=== PATIENT | male | born 1955 | race Caucasian/White ===

== ENCOUNTER 2016-11-26 15:44 | Emergency (ER) | payer BC ==
[~2016-11-26] VITALS: Ht 172.7 cm; Wt 104.0 kg
[2016-11-26 15:45] VITALS: Ht 172.7 cm; Wt 104.0 kg
[2016-11-26] MEDS ORDERED: SODIUM CHLORIDE 0.9% 1000ML 1,000 ML IV ONE (16:15)
[2016-11-26 16:24] VITALS: O2SAT 94
[2016-11-26] MEDS ORDERED: CANA1TAB PO (16:36)
[2016-11-26] MEDS ORDERED: VENL150T33 PO (16:36)
[2016-11-26] MEDS ORDERED: LISI-725 PO (16:36)
[2016-11-26] MEDS ORDERED: GLC/500 PO ×2 (16:36)
[2016-11-26] MEDS ORDERED: LEVO125T72 PO (16:36)
[2016-11-26] MEDS ORDERED: POTA-65 PO (16:36)
[2016-11-26 16:38] LABS: BASO % 0.4 %; BASO ABS # 0.03 K/uL (0-0.2); COMPLETE YES; HEMATOCRIT 50.1 % (42-52); IG% 1.4 %; LYMPH % 14.9 %; LYMPH ABS # 1.16 K/uL (1.2-3.4); MEAN CELL VOLUME 92.4 fL (80-100); MEAN CORPUSCULAR HEMOGLOBIN 31.9 pg (25-34); MEAN CORPUSCULAR HGB CONC 34.5 g/dl (32-36); MEAN PLATELET VOLUME 9.8 fL (7.4-10.4); MONO % 10.4 %; NEUT % 72.9 %; PLATELET COUNT 201 K/uL (130-400); RED BLOOD COUNT 5.42 M/uL (4.7-6.1); WHITE BLOOD COUNT 7.77 K/uL (4.8-10.8)
[2016-11-26 16:46] LABS: PROTHROMBIN TIME (PATIENT) 10.7 SECONDS (9.0-12.0)
[2016-11-26 16:54] LABS: BUN/CREATININE RATIO 17.9 (10-20); CALCIUM 9.3 mg/dl (8.5-10.1); CREATININE 1.1 mg/dl (0.60-1.40); MAGNESIUM 2.1 mg/dl (1.8-2.4); POTASSIUM 3.9 mmol/L (3.5-5.1)
[2016-11-26 17:03] LABS: ALB/GLOB RATIO 0.7 (0.9-2); THYROID STIMULATING HORMONE 3.84 uIu/ml (0.300-4.500)
--- NOTE | 2016-11-26 17:07 | DIAGNOSTIC IMAGING REPORT ---
CHEST 2 VIEWS ROUTINE CLINICAL HISTORY: DM. Fatigue. Tachy. Dyspnea COMPARISON STUDY: No previous studies for comparison. FINDINGS: Small parenchymal infiltrate versus atelectasis left base. Lungs otherwise appear clear. No evidence for cardiac enlargement. IMPRESSION: Parenchymal infiltrate versus atelectasis left base. Electronically signed by: Edmundo Tillman M.D. 11/26/2016 5:06 PM Dictated Date/Time: 11/26/2016 5:05 PM
[2016-11-26] MEDS ORDERED: LEVAQUIN 750MG / 150ML D5W IV ONE (18:15)
[2016-11-26 18:32] VITALS: TEMP 37.9
[2016-11-26 19:18] LABS: URINE APPEARANCE CLEAR (CLEAR); URINE BILIRUBIN NEG (NEG); URINE COLOR YELLOW; URINE EPITHELIAL CELL AUTO 0-5 /lpf (0-5); URINE NITRITE NEG (NEG); URINE PH 6.5 (4.5-7.5); URINE SPECIFIC GRAVITY 1.037 (1.000-1.030); UROBILINOGEN NEG (NEG); ZZUR CULT IF INDIC CLEAN CATCH NO
[2016-11-26 19:26] LABS: LYME DISEASE AB IGG NEG (NEG); LYME DISEASE AB IGM NEG (NEG)
[2016-11-26 19:31] LABS: MANUAL MICROSCOPIC REQUIRED? NO; REVIEW REQ? NO
[2016-11-26] MEDS ORDERED: LEVO-366 PO (19:57)
[2016-11-26 20:03] VITALS: BP 112/80; PULSE 101; O2SAT 93
--- NOTE | 2016-11-26 22:53 | EMERGENCY ROOM VISIT NOTE ---
History First contact with patient: 15:58 Chief Complaint: ABNORMAL LABS Stated Complaint: LOW POTASSIUM, SYNCOPE, HOT/COLD SWEATS-REFERRED History of Present Illness The patient is a 60 year old male who presents to the Emergency Room with complaints of intermittent fevers and chills as well as low potassium. The patient states that he went on vacation to the [facility] about 8 days ago. He states that during the vacation he began to feel ill and went to the local hospital. He was told that his potassium was 2.5 at that time, and this was repleted through his IV. He also had a headache while at that facility and had a negative CT scan. The patient is diabetic but his sugars have been running in the 130s and 140s. He felt very much improved after the ER visit and was able to complete his vacation. He returned locally yesterday and did have some recurrence of his symptoms. He now presents for evaluation and a recheck of his potassium level. The patient does not report chest pain, chest tightness, or shortness of breath. No neck pain. He does have a mildly persistent headache that does come and go. He is not taking anything additional over-the- counter for his symptoms. He rates his discomfort a 5/10. Review of Systems More than 10 systems were reviewed and otherwise negative with the exception of history of present illness. Past Medical/Surgical History History of diabetes and hypertension Family History No pertinent family history Social History Smoking Status: Never Smoker Housing Status: lives with family Current/Historical Medications Scheduled Canagliflozin (Invokana), 100 MG PO DAILY Levofloxacin (Levaquin), 500 MG PO DAILY Levothyroxine Sodium (Synthroid), 125 MCG PO DAILY Lisinopril (Zestril), 20 MG PO DAILY Metformin Hcl (Glucophage), 500 MG PO QAM Metformin Hcl (Glucophage), 250 MG PO QPM Potassium Chloride (Potassium Chloride ER), 20 MEQ PO DAILY Venlafaxine Hcl (Venlafaxine Hcl Er), 150 MG PO DAILY Allergies Coded Allergies: No Known Allergies (Unverified , 11/26/16) Physical Exam Vital Signs Date Time Temp Pulse Resp B/P (MAP) Pulse Ox O2 Delivery O2 Flow Rate FiO2 11/26/16 20:03 101 18 112/80 93 Room Air 11/26/16 18:32 37.9 122 24 117/78 94 11/26/16 17:30 118 18 120/89 96 Room Air 11/26/16 16:24 94 Room Air 11/26/16 16:10 121 11/26/16 15:45 37.4 125 16 120/81 96 Room Air Pain Rating (0-10): 0 Physical Exam VITALS: Vitals are noted on the nurse's note and reviewed by myself. Vital signs with tachycardia and hypertension GENERAL: Well-developed, well-nourished, white male, who is in no acute distress and resting comfortably. Patient is cooperative with the examination. HEAD: Normocephalic atraumatic. EARS: External ear normal. External auditory canals clear, tympanic membranes pearly ruiz without erythema or effusion bilaterally. EYES: Pupils equal round and reactive to light and accommodation. Conjunctivae without injection, sclerae without icterus. Extraocular movements intact. NOSE: Patent, turbinates without inflammation or discharge. MOUTH: Mucous membranes moist. Tonsils are not enlarged. Pharynx without erythema, blood, or exudate. Uvula midline. Airway patent. NECK: Supple without nuchal rigidity. No lymphadenopathy. No thyromegaly. Cervical spine is nontender. HEART: Tachycardic rate with regular rhythm. No murmur gallop or rub LUNGS: Clear to auscultation bilaterally without wheezes, rales or rhonchi. No retractions or accessory muscle use. ABDOMEN: Positive normal bowel sounds x 4. Soft, nontender, without masses or organomegaly. No guarding or rebound tenderness. MUSCULOSKELETAL: No muscle atrophy, erythema, or edema noted. Full range of motion without joint tenderness in all extremities. Negative Homans sign bilateral. Medical Decision & Procedures ER Provider Diagnostic Interpretation: CHEST 2 VIEWS ROUTINE CLINICAL HISTORY: DM. Fatigue. Tachy. Dyspnea COMPARISON STUDY: No previous studies for comparison. FINDINGS: Small parenchymal infiltrate versus atelectasis left base. Lungs otherwise appear clear. No evidence for cardiac enlargement. IMPRESSION: Parenchymal infiltrate versus atelectasis left base. Laboratory Results 11/26/16 16:21 Red Blood Count 5.42, Mean Corpuscular Volume 92.4, Mean Corpuscular Hemoglobin 31.9, Mean Corpuscular Hemoglobin Concent 34.5, Mean Platelet Volume 9.8, Neutrophils (%) (Auto) 72.9, Lymphocytes (%) (Auto) 14.9, Monocytes (%) (Auto) 10.4, Eosinophils (%) (Auto) 0.0, Basophils (%) (Auto) 0.4, Neutrophils # (Auto ) 5.66, Lymphocytes # (Auto) 1.16, Monocytes # (Auto) 0.81, Eosinophils # (Auto ) 0.00, Basophils # (Auto) 0.03 11/26/16 16:21 Test 11/26/16 16:21 11/26/16 16:30 11/26/16 16:33 11/26/16 16:50 White Blood Count 7.77 K/uL (4.8-10.8) Red Blood Count 5.42 M/uL (4.7-6.1) Hemoglobin 17.3 g/dL (14.0-18.0) Hematocrit 50.1 % (42-52) Mean Corpuscular Volume 92.4 fL (80-100) Mean Corpuscular Hemoglobin 31.9 pg (25-34) Mean Corpuscular Hemoglobin Concent 34.5 g/dl (32-36) Platelet Count 201 K/uL (130-400) Mean Platelet Volume 9.8 fL (7.4-10.4) Neutrophils (%) (Auto) 72.9 % Lymphocytes (%) (Auto) 14.9 % Monocytes (%) (Auto) 10.4 % Eosinophils (%) (Auto) 0.0 % Basophils (%) (Auto) 0.4 % Neutrophils # (Auto) 5.66 K/uL (1.4-6.5) Lymphocytes # (Auto) 1.16 K/uL (1.2-3.4) Monocytes # (Auto) 0.81 K/uL (0.11-0.59) Eosinophils # (Auto) 0.00 K/uL (0-0.5) Basophils # (Auto) 0.03 K/uL (0-0.2) RDW Standard Deviation 44.8 fL (36.4-46.3) RDW Coefficient of Variation 13.3 % (11.5-14.5) Immature Granulocyte % (Auto) 1.4 % Immature Granulocyte # (Auto) 0.11 K/uL (0.00-0.02) Prothrombin Time 10.7 SECONDS (9.0-12.0) Prothromb Time International Ratio 1.0 (0.9-1.1) Activated Partial Thromboplast Time 25.3 SECONDS (21.0-31.0) Partial Thromboplastin Ratio 1.0 Anion Gap 10.0 mmol/L (3-11) Est Creatinine Clear Calc Drug Dose 82.4 ml/min Estimated GFR () 83.5 Estimated GFR (Non- 72.1 BUN/Creatinine Ratio 17.9 (10-20) Calcium Level 9.3 mg/dl (8.5-10.1) Magnesium Level 2.1 mg/dl (1.8-2.4) Total Bilirubin 0.8 mg/dl (0.2-1) Aspartate Amino Transf (AST/SGOT) 26 U/L (15-37) Alanine Aminotransferase (ALT/SGPT) 65 U/L (12-78) Alkaline Phosphatase 90 U/L (45-117) Total Protein 8.2 gm/dl (6.4-8.2) Albumin 3.5 gm/dl (3.4-5.0) Globulin 4.7 gm/dl (2.5-4.0) Albumin/Globulin Ratio 0.7 (0.9-2) Lipase 265 U/L (73-393) Thyroid Stimulating Hormone (TSH) 3.840 uIu/ml (0.300-4.500) Free Thyroxine 1.09 ng/dl (0.80-1.60) Lyme Disease IgG Antibody NEG (NEG) Lyme Disease IgM Antibody NEG (NEG) Monoscreen NEG (NEG) Bedside Lactic Acid Venous 1.96 mmol/L (0.90-1.70) Bedside Troponin I < 0.030 ng/ml (0-0.045) Urine Color YELLOW Urine Appearance CLEAR (CLEAR) Urine pH 6.5 (4.5-7.5) Urine Specific [place] 1.037 (1.000-1.030) Urine Protein 1+ (NEG) Urine Glucose (UA) 3+ (NEG) Urine Ketones 1+ (NEG) Urine Occult Blood 3+ (NEG) Urine Nitrite NEG (NEG) Urine Bilirubin NEG (NEG) Urine Urobilinogen NEG (NEG) Urine Leukocyte Esterase NEG (NEG) Urine WBC (Auto) 1-5 /hpf (0-5) Urine RBC (Auto) >30 /hpf (0-4) Urine Hyaline Casts (Auto) 0 /lpf (0-5) Urine Epithelial Cells (Auto) 0-5 /lpf (0-5) Urine Bacteria (Auto) NEG (NEG) Medications Administered Medications (Trade) Dose Ordered Sig/Anton Route Start Time Stop Time Status Last Admin Dose Admin Sodium Chloride 1,000 ml @ 999 mls/hr Q1H1M ONCE IV 11/26/16 16:15 11/26/16 17:15 DC 11/26/16 16:15 999 MLS/HR Levofloxacin (Levaquin / D5W) 750 mg NOW ONCE IV 11/26/16 18:15 11/26/16 18:16 DC 11/26/16 18:31 750 MG ED Course Physical exam and history were performed. Nursing notes and EMR were reviewed. Patient appears to have vague illness symptoms over the past 8 or 9 days. On examination the patient does not appear toxic but he is slightly tachycardic. The patient is also diabetic. IV access was established and labs were obtained. Blood cultures were gathered and chest x-ray was performed. The patient was hydrated with normal saline. The patient's blood work is as above and was reviewed. He does not have a significantly elevated white blood cell count, gross anemia, bandemia, or significant electrolyte imbalance. His glucose is slightly elevated but not significantly. Urine does not show evidence of infection. Lyme is negative. The patient does have a very mildly elevated lactic acid with blood cultures pending. The chest x-ray appears to show a very mild infiltrate, which clinically is likely an early pneumonia. I discussed the case with my attending physician, Dr. Shin, remaining closely involved in patient care and decision making. I discussed options of care with the patient and family. They do have a strong preference for discharge home, and do not wish to stay in the hospital tonight. The patient was given Levaquin IV, and will be given a home course of this as well. I suspect that he likely has a mild pneumonia which is causing much of his illness. The patient was asked to return to the emergency department with any new, worsening, or concerning symptoms. He was pleased with plan of care and voiced understanding. He rated his discomfort a 0/10 at the time of departure. The chart was completed utilizing [employer] Voice Recognition Software. Grammatical errors, random word insertions, pronoun errors, and incomplete sentences are an occasional consequence of this system due to software limitations, ambient noise, and hardware issues. Any formal questions or concerns about the content, text, or information contained within the body of this dictation should be directly addressed to the provider for clarification. . Medical Decision Differential diagnosis: Etiologies such as sepsis, UTI, pneumonia, metabolic, electrolyte abnormalities , cardiac sources, intracerebral event, toxicologic, neurologic, as well as others were entertained. Impression Primary Impression: Pneumonia Departure Information Dispostion Home / Self-Care Condition GOOD Prescriptions Levofloxacin (Levaquin) 500 Mg Tab 500 MG PO DAILY for 10 Days, #10 TAB Prov: Brian Flanagan PA-C 11/26/16 Forms HOME CARE DOCUMENTATION FORM, Work Instructions, Additional Instructions: Patient was seen and evaluated today in the emergency department medica care. Return to work 11/29/2016. Please excuse. IMPORTANT VISIT INFORMATION Patient Instructions My [facility] Additional Instructions You were seen and evaluated today on an emergency basis only. This is not a substitute for, or an effort to provide, complete comprehensive medical care. It is not possible to recognize and treat all injuries or illnesses in a single emergency department visit. For this reason it is recommended that you followup with your primary care physician in the next 36-48 hours for recheck of your condition. Take Levaquin 500 milligrams once daily for the next 10 days. For baseline pain relief you may alternate ibuprofen and acetaminophen every 4 hours for pain control. Take 600 mg ibuprofen (Advil) and then 4 hours later take 1000 mg acetaminophen (Tylenol). Do not take more than 3000 mg acetaminophen in a single day. You are welcome to return to the emergency department anytime with new, worsening, or concerning symptoms. Work Instructions Additional Work Instructions: Patient was seen and evaluated today in the emergency department medical care. Return to work 11/29/2016. Please excuse.
[2016-11-28 15:49] LABS: EBV EARLY ANTIGEN AB <9.00 U/ML
== END 2016-11-26 20:12 | disposition home or self-care (01) ==
LOC: C.EDB 15:46 → C.EDA 20:12
DX: J18.9 Pneumonia, unspecified organism (principal); R55 Syncope and collapse; E11.9 Type 2 diabetes mellitus without complications; I10 Essential (primary) hypertension; Z79.899 Other long term (current) drug therapy